=== PATIENT | female | born 1985 | race Caucasian/White ===

== ENCOUNTER 2016-12-13 07:35 | Inpatient (IN) | payer BC ==
[~2016-12-13] VITALS: Ht 152.4 cm; Wt 70.9 kg
[2016-12-13] VITALS (24 sets, daily range): BP systolic 89–135; BP diastolic 49–82
[2016-12-13 09:57] LABS: EOSINOPHIL (%) 1.1 % (0-5); EOSINOPHIL COUNT 0.1 K/uL (0-0.3); HEMATOCRIT 32.9 % (36.0-46.0); IMMATURE GRANULOCYTE (%) 1.3 % (0.0-0.7); IMMATURE GRANULOCYTE COUNT 0.1 K/uL; INSTRUMENT ABS NEUTROPHIL CT 7.4 K/uL; MCH 29.5 PG (29.0-34.0); MCV 86.6 FL (83-99); MEAN PLAT.VOLUME 11.3 uM^3 (9.5-12.4); MONOCYTE (%) 7.2 % (3-12); MONOCYTE COUNT 0.8 K/uL (0-0.8); NEUTROPHIL (%) 70.6 % (45-76); NEUTROPHIL COUNT 7.4 K/uL (1.8-6.4); PLATELET COUNT 170 K/uL (156-360); RBC DIS.WIDTH-CV 13.3 % (11.8-14.6); RBC DIS.WIDTH-SD 41.4 % (39-53); WHITE BLOOD COUNT 10.4 K/uL (4.1-10.2)
[2016-12-13] MEDS ORDERED: VALACYCLOVIR500 MG PO (18:14)
[2016-12-13] MEDS ORDERED: ZANTAC150 MG PO (18:15)
[2016-12-13] MEDS ORDERED: PROVENTIL,2.5 MG/3 M IH (18:19)
[2016-12-13] MEDS ORDERED: ADVAIR 500/501 DISK IH (18:20)
[2016-12-14 07:24] LABS: EOSINOPHIL COUNT 0.1 K/uL (0-0.3); HEMATOCRIT 26.2 % (36.0-46.0); IMMATURE GRANULOCYTE (%) 0.9 % (0.0-0.7); IMMATURE GRANULOCYTE COUNT 0.1 K/uL; LYMPHOCYTE COUNT 2.2 K/uL (1.0-2.8); MCH 29.9 PG (29.0-34.0); MCV 87.9 FL (83-99); MEAN PLAT.VOLUME 11.7 uM^3 (9.5-12.4); MONOCYTE (%) 6.9 % (3-12); MONOCYTE COUNT 0.9 K/uL (0-0.8); NEUTROPHIL (%) 74.6 % (45-76); PLATELET COUNT 156 K/uL (156-360); RBC DIS.WIDTH-CV 13.3 % (11.8-14.6); RBC DIS.WIDTH-SD 42.9 % (39-53); WHITE BLOOD COUNT 13.4 K/uL (4.1-10.2)
[2016-12-14 07:25] VITALS: BP 103/54
[2016-12-14 07:25] LABS: RED BLOOD COUNT 2.98 M/uL (3.80-5.20)
[2016-12-14 15:09] VITALS: BP 114/63
[2016-12-14 23:02] VITALS: BP 113/59
[2016-12-15 07:21] VITALS: BP 104/52
[2016-12-15] MEDS ORDERED: FERROCITE324 MG PO (10:09)
[2016-12-15] MEDS ORDERED: IBUPROFEN800 MG PO (10:09)
[2016-12-15] MEDS ORDERED: DOCUSATE SODIU100 MG PO (10:09)
== END 2016-12-15 13:18 | disposition home or self-care (01) | DRG 775 ==
LOC: LDRP-OP → 2WEST 07:36 → LDRP-OP 09:30 → 2WEST 19:30 → LDRP-OP 01-19 14:02
PROVIDERS: Advanced Practice Midwife
PROC: 10907ZC Drainage of Amniotic Fluid, Therapeutic from Products of Conception, Via Natural or Artificial Opening (ICD-10-PCS; principal; 2016-12-15)
PROC: 00HU33Z Insertion of Infusion Device into Spinal Canal, Percutaneous Approach (ICD-10-PCS; principal; 2016-12-15)
PROC: 10E0XZZ Delivery of Products of Conception, External Approach (ICD-10-PCS; principal; 2016-12-15)
PROC: 3E0R3CZ (ICD-10-PCS; principal; 2016-12-15)
DX: O99.340 Other mental disorders complicating pregnancy, unspecified trimester (principal); O99.330 Smoking (tobacco) complicating pregnancy, unspecified trimester; F17.200 Nicotine dependence, unspecified, uncomplicated; F41.9 Anxiety disorder, unspecified; F90.9 Attention-deficit hyperactivity disorder, unspecified type; O99.02 Anemia complicating childbirth; D62 Acute posthemorrhagic anemia; Z3A.39 39 weeks gestation of pregnancy
CPT/HCPCS: 85025; 94640; 94640 76; C1755; J3010; J7120